=== PATIENT | female | born 1995 | race Caucasian/White ===

== ENCOUNTER 2018-05-31 14:07 | Emergency (ER) | payer BC ==
[2018-05-31 14:31] VITALS: BP 174/73
--- NOTE | 2018-05-31 15:02 | UC ---
UC General HPI - HPI Summary HPI Summary: pt presents for evaluation of her fever and vomiting. she states she has been vomiting intermittently since Tuesday. she denies being light headed or dizzy. 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 - History of Current Complaint Chief Complaint: UCGI Stated Complaint: VOMITING, FEVER Hx Obtained From: Patient Hx Last Menstrual Period: n/a Onset/Duration: Gradual Onset Onset Severity: Mild Current Severity: Mild Pain Intensity: 0 - Allergy/Home Medications Allergies/Adverse Reactions: Allergies Allergy/AdvReac Type Severity Reaction Status Date / Time No Known Allergies Allergy Verified 05/31/18 14:23 Home Medications: Home Medications Etonogestrel [Nexplanon] 68 mg IMPLANT DAILY 05/31/18 [History Confirmed ] Ibuprofen TAB* [Motrin TAB* 400 MG] 400 mg PO DAILY PRN 05/31/18 [History Confirmed 05/31/18] PMH/Surg Hx/FS Hx/Imm Hx Previously Healthy: Yes - Surgical History Surgical History: Yes Surgery Procedure, Year, and Place: wisdom teeth - Social History Alcohol Use: Weekly Alcohol Amount: 10 Substance Use Type: None Smoking Status (MU): Never Smoked Tobacco Review of Systems All Other Systems Reviewed And Are Negative: No Constitutional: Positive: Fever, Chills Eyes: Positive: Negative ENT: Positive: Negative Respiratory: Positive: Negative Cardiovascular: Positive: Negative Gastrointestinal: Positive: Vomiting, Nausea. Negative: Abdominal Pain, Diarrhea Genitourinary: Negative: Dysuria, Hematuria, Frequency, Urgency Motor: Positive: Negative Neurovascular: Positive: Negative Musculoskeletal: Positive: Negative Neurological: Positive: Negative Psychological: Positive: Negative Is Patient Immunocompromised?: No Physical Exam Triage Information Reviewed: Yes Appearance: No Pain Distress, Well-Nourished Vital Signs: Initial Vital Signs Temp 99.6 F 05/31/18 14:26 Pulse 133 05/31/18 14:26 Resp 18 05/31/18 14:26 BP 174/73 05/31/18 14:26 Pulse Ox 100 05/31/18 14:26 Vital Signs Reviewed: Yes Eye Exam: Normal Eyes: Positive: Conjunctiva Clear ENT: Positive: Other - minimally dry mucous membranes Neck exam: Normal Respiratory Exam: Normal Cardiovascular: Positive: Tachycardia Abdomen Description: Positive: Nontender, Soft Bowel Sounds: Positive: Present Musculoskeletal Exam: Normal Neurological Exam: Normal Psychological Exam: Normal Skin Exam: Normal Course/Dx - Course Course Of Treatment: RN informed me during traige that pt is not febrile but she is tachycardic in the 130s. I requested an EKG. EKG showed NSR rate of 95. However, she had st depression noted in V3, V4, V5, and II. In AVF she had non-specific. BP 174/73. All of the above findings require further evaluation in the Emergency Dept setting. I discussed this with the patient. I offered her an ambulance ride. She deferred. I called and spoke to Svitlana Donis NP. She is aware of the patient. Pt discharged directly to the [facility] ED. - Differential Dx - Multi-Symptom Differential Diagnoses: Cardiac Ischemia, Other - hyperthyroidism, dehydration - Diagnoses Provider Diagnosis: Tachycardia Discharge - Sign-Out/Discharge Documenting (check all that apply): Patient Departure All imaging exams completed and their final reports reviewed: No Studies - Discharge Plan Condition: Stable Disposition: HOME-RECOMMEND TO ED Patient Education Materials: Tachycardia (ED) Referrals: No Primary Care Phys,[facility]OPCP [Primary Care Provider] - [facility] [Provider Group] Additional Instructions: Go to [facility] immediately after discharge. - Billing Disposition and Condition Condition: STABLE Disposition: Home-Recommend to ED
== END 2018-05-31 15:08 | disposition home health service (06) ==
LOC: UCCORT 14:07
DX: R00.0 Tachycardia, unspecified (principal)
CPT/HCPCS: 99202; G0463